=== PATIENT | female | born 1980 | race Caucasian/White ===

== ENCOUNTER 2017-02-22 20:39 | Emergency (ER) | payer OTHER ==
[2017-02-22 20:55] VITALS: BP 149/86
--- NOTE | 2017-02-22 21:32 | UC ---
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 to continue Flonase, Mucinex, Albuterol inhaler and Tessalon; 02/18/17 telemed Rx with [facility] --pt reports feels worse today, feels like "can't catch my breath" --has not used Albuterol today" + sinus pain and pressure over cheeks. was using albuterol q4hrs with relief. no wheezing. sinus sx feel worse than originally s/p JASON 2 yrs ago, denies - History of Current Complaint Chief Complaint: UCGeneralIllness Stated Complaint: COLD SYMPTOMS X 2 WEEKS Time Seen by Provider: 02/22/17 21:12 - Allergies/Home Medications Allergies/Adverse Reactions: Allergies Allergy/AdvReac Type Severity Reaction Status Date / Time Adhesive Tape Allergy Rash Verified 02/22/17 20:55 Amoxicillin Allergy Vomiting Verified 02/22/17 20:55 Penicillins Allergy See Comment Verified 02/22/17 20:55 Sulfa Antibiotics Allergy Hives Verified 02/22/17 20:55 Home Medications: Home Medications Albuterol HFA INHALER* [Ventolin HFA Inhaler*] 2 puff INH Q4H PRN 02/22/17 [ History Confirmed 02/22/17] Benzonatate CAP* [Tessalon 100 MG CAP*] 100 mg PO TID PRN 02/22/17 [History Confirmed 02/22/17] Fluticasone NASAL SPRAY 50MCG* [Flonase NASAL SPRAY 50MCG*] 2 spray BOTH NARES DAILY 02/22/17 [History Confirmed 02/22/17] LevoCETirizine TAB (NF) [Xyzal TAB (NF)] 5 mg PO BEDTIME 02/22/17 [History Confirmed 02/22/17] Levothyroxine TAB* [Synthroid TAB*] 50 mcg PO DAILY 02/22/17 [History Confirmed 02/22/17] Pseudoephedrine-Guaifenesin [Mucinex D 60-600 mg] 1 tab PO Q6H PRN 02/22/17 [ History Confirmed 02/22/17] PMH/Surg Hx/FS Hx/Imm Hx Endocrine History: Hypothyroidism Psychological History: Anxiety, Depression - Surgical History Surgical History: Yes Surgery Procedure, Year, and Place: CHOLECYSTECTOMY, TONSILECTOMY, HYSTERECTOMY - Family History Known Family History: Positive: Cardiac Disease, Hypertension, Diabetes, Other - dad with kidney stones - Social History Alcohol Use: None Substance Use Type: None Smoking Status (MU): Never Smoked Tobacco Review of Systems Constitutional: Negative Skin: Negative Eyes: Negative ENT: Sinus Pain/Tenderness Respiratory: Cough Cardiovascular: Negative Gastrointestinal: Negative Genitourinary: Negative Motor: Negative Neurovascular: Negative Musculoskeletal: Negative Neurological: Negative Psychological: Negative Is Patient Immunocompromised?: No All Other Systems Reviewed And Are Negative: Yes Physical Exam Triage Information Reviewed: Yes Appearance: Well-Appearing, No Pain Distress, Well-Nourished - speaks in full sentences, very pelasant, reliable historian. Vital Signs: Initial Vital Signs Temp 98.1 F 02/22/17 20:48 Pulse 99 02/22/17 20:48 Resp 17 02/22/17 20:48 BP 149/86 02/22/17 20:48 Pulse Ox 97 02/22/17 20:48 Vital Signs Reviewed: Yes Eye Exam: Normal ENT Exam: Normal ENT: Positive: Pharyngeal erythema - +PND, Nasal congestion, Nasal drainage, TMs normal, Other: - + b/l maxillary tenderness.. Negative: Tonsillar swelling , Tonsillar exudate Dental Exam: Normal Neck exam: Normal Neck: Positive: Supple, Nontender, No Lymphadenopathy Respiratory Exam: Normal Respiratory: Positive: Lungs clear, Normal breath sounds, No respiratory distress, No accessory muscle use. Negative: Crackles, Rhonchi, Stridor, Wheezing Cardiovascular Exam: Normal Cardiovascular: Positive: RRR, No Murmur, Pulses Normal Abdominal Exam: Normal Abdomen Description: Positive: Nontender, Soft Musculoskeletal Exam: Normal Neurological Exam: Normal Psychological Exam: Normal Skin Exam: Normal UC Diagnostic Evaluation - Laboratory O2 Sat by Pulse Oximetry: 97 Respiratory Course/Dx - Course Course Of Treatment: d/c zpack, start doxy. probiotic. no s/s respiratory distress. no cp. - Differential Dx/Diagnosis Differential Diagnosis/HQI/PQRI: Asthma, Bronchitis, Lower Resp Infection, Sinusitis Provider Diagnoses: sinusitis. Discharge - Discharge Plan Condition: Stable Disposition: HOME Prescriptions: Doxycycline (Monohydrate) [Doxycycline Monohydrate] 100 mg PO BID #20 cap Patient Education Materials: Sinusitis (ED) Referrals: Alejandra Robertson MD [Primary Care Provider] - 3 Days Additional Instructions: Make sure to take a probiotic daily while on antibiotics to help prevent a potential complication of antibiotic use called c diff. Some well known brands that can be found OTC are florastor, align and [employer]. Make sure to complete the entire prescription unless advised otherwise by your health care provider. You should follow up sooner if your symptoms worsen.
== END 2017-02-22 21:48 | disposition home or self-care (01) ==
LOC: UCCORT 20:39
DX: J32.9 Chronic sinusitis, unspecified (principal); E03.9 Hypothyroidism, unspecified; F32.9 Major depressive disorder, single episode, unspecified; F41.9 Anxiety disorder, unspecified
CPT/HCPCS: 99212; G0463